=== PATIENT | male | born 1975 | race Caucasian/White ===

== ENCOUNTER → 2025-02-22 | Outpatient (CLI) | payer MEDICAID, SELFPAY ==
--- NOTE | 2025-02-22 13:30 | XR_ITS ---
Examination: Thoracic spine 3 views Technique one AP lateral coned lateral upper dorsal spine 3 views Exam date and time: February 22, 2025 1402 hours INDICATIONS: Upper back pain one year. FINDINGS: Thoracolumbar levoscoliosis 12 degrees Significant osteopenia Minimal chronic wedging T11, T10 No acute thoracic fracture Mild diffuse thoracic disc narrowing IMPRESSION: Mild diffuse thoracic degenerative disc disease
--- NOTE | 2025-02-22 13:30 | XR_ITS ---
EXAMINATION: Cervical spine, 5 views Technique: Cervical spine AP, AP odontoid, lateral, bilateral obliques, 5 views Exam date and time: February 22, 2025 1344 hours INDICATIONS: Neck pain months. FINDINGS: Straightening normal cervical lordosis No cervical fracture Advanced degenerative disc disease C5-C6 No diagnostic visualization C7 IMPRESSION: Advanced degenerative disc disease C5-C6, recommend follow-up swimmer's lateral view to diagnostically assess C7
--- NOTE | 2025-02-22 13:30 | XR_ITS ---
Examination: PA lateral chest 2 views TECHNIQUE: Upright PA lateral chest 2 views Exam date and time: February 22, 2025 1337 hours Comparison June 16, 2024 INDICATIONS: Shortness of breath this week. FINDINGS: Normal heart size Lungs are clear. Moderate osteopenia IMPRESSION: No active disease
--- NOTE | 2025-02-22 13:30 | XR_ITS ---
Examination: Lumbar spine, 5 views Technique: Lumbar spine AP, lateral, coned lateral lower lumbar spine, bilateral obliques 5 views Exam date and time: February 22, 2025 1411 hours INDICATIONS: Low back pain beginning one year ago. FINDINGS: Adequate alignment lumbar vertebral bodies No lumbar fracture No spondylolisthesis Mild to moderate degenerative disc disease L5-S1 IMPRESSION: Mild to moderate degenerative disc disease L5-S1
== END | disposition home or self-care (01) ==
PROVIDERS: PCP Internal Medicine; Referring Provider Internal Medicine; Visit Provider Internal Medicine
DX: M50.322 Other cervical disc degeneration at C5-C6 level (principal); M51.370 Other intervertebral disc degeneration, lumbosacral region with discogenic back pain only; M51.34 Other intervertebral disc degeneration, thoracic region; R06.02 Shortness of breath
CPT/HCPCS: 71046; 72050; 72072; 72110